=== PATIENT | female | born 1980 | race Caucasian/White ===

== ENCOUNTER → 2017-01-04 | Outpatient (CLI) | payer OTHER ==
--- NOTE | 2017-01-04 14:15 | XR ---
EXAMINATION TYPE: XR sacrum coccyx DATE OF EXAM ORDERED: 01/04/2017 1:56 PM HISTORY: M53.3 Sacrococcygeal Disorders. COMPARISON: None. FINDINGS: Clips project over the right hemipelvis. The sacrum and coccyx are normal. There is no evidence of fracture or bony destructive lesion. The SI joints have a normal appearance. IMPRESSION: NORMAL SACRUM AND COCCYX.
== END | disposition home or self-care (01) ==
LOC: RADXRMAIN 13:39
PROVIDERS: ATTEND Pediatrics
DX: M53.3 Sacrococcygeal disorders, not elsewhere classified (principal)
CPT/HCPCS: 72220

== ENCOUNTER 2017-02-08 22:03 | Emergency (ER) | payer OTHER ==
[2017-02-08] MEDS ORDERED: SODIUM CHLORIDE 0.9% 1,000 ML IV STA ×2 (22:15)
[2017-02-08] MEDS ORDERED: ACETAMINOPHEN TAB 500 MG TAB PO STA (22:16)
--- NOTE | 2017-02-08 22:30 | XR ---
EXAM: XR Chest, 2 Views CLINICAL HISTORY: Reason: Chest Pain TECHNIQUE: Frontal and lateral views of the chest. COMPARISON: No relevant prior studies available. FINDINGS: Lungs: Unremarkable. No consolidation. Pleural space: Unremarkable. No pneumothorax. Heart: Unremarkable. No cardiomegaly. Mediastinum: Unremarkable. Bones/joints: No acute osseous abnormality is seen. Upper abdomen: Partially included on the lateral view only, are surgical clips within the upper to mid abdomen. IMPRESSION: No acute process seen within the chest.
[2017-02-08] MEDS ORDERED: KETOROLAC 30 MG/ML 1 ML VIAL IVP STA (22:46)
[2017-02-08 23:01] LABS: Basophils % (A) 0 %; CH 33.3; CHCM 35.3; Eosinophils % (A) 0 %; HCT 39.5 % (34.0-46.0); HDW 2.38; HGB 13.5 gm/dL (11.4-16.0); Luc # (Auto) 0.19; Luc % (Auto) 1; Lymphocytes % (A) 7 %; MCH 32.3 pg (25.0-35.0); MCHC 34.2 g/dL (31.0-37.0); MCV 94.7 fL (80.0-100.0); Mean Platelet Volume 6.6; Monocytes # (A) 0.6 k/uL (0-1.0); Monocytes % (A) 4 %; Neutrophils # (A) 12.2 k/uL (1.3-7.7); Neutrophils % (A) 87 %; RBC 4.17 m/uL (3.80-5.40); RDW 13.3 % (11.5-15.5); WBC 14.1 k/uL (3.8-10.6); WBC (Perox) 14.47
[2017-02-08 23:10] LABS: INR 0.9 (<1.1); Partial Thromboplastin Time 22.8 sec (22.0-30.0); Prothrombin Time 9.5 sec (9.0-12.0)
[2017-02-08 23:34] LABS: ALT 31 U/L (9-52); AST 19 U/L (14-36); Alkaline Phosphatase 71 U/L (38-126); Anion Gap 11 mmol/L; Blood Urea Nitrogen 6 mg/dL (7-17); Calcium 9.2 mg/dL (8.4-10.2); Carbon Dioxide 22 mmol/L (22-30); Chloride 102 mmol/L (98-107); Glucose 122 mg/dL (74-99); Non-African American GFR(MDRD) >60 (>60 ml/min/1.73 sqM); Potassium 3.8 mmol/L (3.5-5.1); Sodium 135 mmol/L (137-145); Total Bilirubin 0.3 mg/dL (0.2-1.3); Total Protein 6.3 g/dL (6.3-8.2)
[2017-02-08 23:44] LABS: Appearance,Urine Clear (Clear); Bilirubin,Urine Negative (Negative); Glucose,Urine (UA) Negative (Negative); Ketones,Urine Negative (Negative); Leukocyte Esterase,Urine Negative (Negative); Nitrite,Urine Negative (Negative); Protein,Urine Negative (Negative); Specific Gravity,Urine 1.004 (1.001-1.035); UA Billing (MACRO vs. MICRO) CHEM; Urobilinogen,Urine <2.0 mg/dL (<2.0)
[2017-02-08] MEDS ORDERED: AMOXICILLIN 500MG STARTER PACK 3 CAP BTL PO STA (23:44)
--- NOTE | 2017-02-08 23:55 | ED ---
Headache HPI - General Chief Complaint: Headache Stated Complaint: migraine and fever Time Seen by Provider: 02/08/17 22:15 Source: RN notes reviewed, old records reviewed Mode of arrival: ambulatory Limitations: no limitations - History of Present Illness Initial Comments: This is a 36-year-old female with chief complaint of headache and sore throat for the past few hours. Patient reports that she was feeling fine earlier today. She reports that she started developing any fever later this evening. She did take some Motrin earlier today. She states that now she currently has a severe headache. She denies any neurological deficits. She reports that her headaches attack 10. She states that she is not taking any Tylenol. Denies any nausea or vomiting abdominal pain today. Denies any chest pain shortness of breath or coughing. Patient states that she's opted on vaccinations. She has a medical history including viral meningitis. - Related Data Home Medications Medication Instructions Recorded Confirmed ALPRAZolam [Xanax] 0.5 mg PO DAILY PRN 02/08/17 02/08/17 Ibuprofen [Motrin] 400 mg PO Q6HR PRN 02/08/17 02/08/17 Venlafaxine HCl [Effexor] 100 mg PO BID 02/08/17 02/08/17 Previous Rx's Medication Instructions Recorded Amoxicillin 500 mg PO Q12HR #10 cap 02/09/17 Allergies Allergy/AdvReac Type Severity Reaction Status Date / Time No Known Allergies Allergy Verified 02/08/17 22:47 Review of Systems ROS Statement: Those systems with pertinent positive or pertinent negative responses have been documented in the HPI. ROS Other: All systems not noted in ROS Statement are negative. Past Medical History Additional Past Medical History / Comment(s): meningitis,rheumatic fever History of Any Multi-Drug Resistant Organisms: None Reported Past Surgical History: Cholecystectomy, Hysterectomy Additional Past Surgical History / Comment(s): blood patch Past Psychological History: Anxiety, Depression Smoking Status: Current every day smoker Past Alcohol Use History: Occasional Past Drug Use History: None Reported General Exam - General Exam Comments Initial Comments: Well-appearing 36-year-old female. Patient does appear to be tired. Limitations: no limitations General appearance: alert, in no apparent distress Head exam: Present: atraumatic, normocephalic, normal inspection Eye exam: Present: normal appearance, PERRL, EOMI. Absent: scleral icterus, conjunctival injection, periorbital swelling ENT exam: Present: normal exam, mucous membranes moist. Absent: normal oropharynx (Limits oropharynx with white exudates.) Neck exam: Present: normal inspection. Absent: tenderness, meningismus, lymphadenopathy Respiratory exam: Present: normal lung sounds bilaterally. Absent: respiratory distress, wheezes, rales, rhonchi, stridor Cardiovascular Exam: Present: regular rate, normal rhythm, normal heart sounds. Absent: systolic murmur, diastolic murmur, rubs, gallop, clicks GI/Abdominal exam: Present: soft, normal bowel sounds. Absent: distended, tenderness, guarding, rebound, rigid Extremities exam: Present: normal inspection, full ROM, normal capillary refill. Absent: tenderness, pedal edema, joint swelling, calf tenderness Back exam: Present: normal inspection Neurological exam: Present: alert, oriented X3, CN II-XII intact Psychiatric exam: Present: normal affect, normal mood Skin exam: Present: warm, dry, intact, normal color. Absent: rash Course Vital Signs 02/08/17 02/09/17 22:10 00:15 Temperature 102.7 F H 101.5 F H Pulse Rate 138 H 108 H Respiratory 20 16 Rate Blood Pressure 133/76 120/56 O2 Sat by Pulse 96 96 Oximetry Medical Decision Making - Medical Decision Making This is a 36-year-old female with chief complaint of headache and sore throat for the past few hours. Patient reports that she was feeling fine earlier today. She reports that she started developing any fever later this evening. She did take some Motrin earlier today. She states that now she currently has a severe headache. She denies any neurological deficits. She reports that her headaches attack 10. Patient given IV fluids, labs obtained. Leukocytosis of 14.4. Patient has positive rapid strep. Patient some improvement of headache with IV fluids, and toradol and tylenol. Sehe is feeling much better at this time. PAtient will be discharged with amoxicillin. Patient agrees to treatment plan and will comply. Return parameters dischssed. - Lab Data Result diagrams: 02/08/17 22:39 02/08/17 22:39 Lab Results 02/08/17 02/08/17 02/08/17 Range/Units 20:11 22:39 22:39 WBC 14.1 H (3.8-10.6) k/uL RBC 4.17 (3.80-5.40) m/uL Hgb 13.5 (11.4-16.0) gm/dL Hct 39.5 (34.0-46.0) % MCV 94.7 (80.0-100.0) fL MCH 32.3 (25.0-35.0) pg MCHC 34.2 (31.0-37.0) g/dL RDW 13.3 (11.5-15.5) % Plt Count 295 (150-450) k/uL Neutrophils % 87 % Lymphocytes % 7 % Monocytes % 4 % Eosinophils % 0 % Basophils % 0 % Neutrophils # 12.2 H (1.3-7.7) k/uL Lymphocytes # 1.0 (1.0-4.8) k/uL Monocytes # 0.6 (0-1.0) k/uL Eosinophils # 0.0 (0-0.7) k/uL Basophils # 0.0 (0-0.2) k/uL PT (9.0-12.0) sec INR (<1.1) APTT (22.0-30.0) sec Sodium (137-145) mmol/L Potassium (3.5-5.1) mmol/L Chloride (98-107) mmol/L Carbon Dioxide (22-30) mmol/L Anion Gap mmol/L BUN (7-17) mg/dL Creatinine (0.52-1.04) mg/dL Est GFR (MDRD) Af Amer (>60 ml/min/1.73 sqM) Est GFR (MDRD) Non-Af (>60 ml/min/1.73 sqM) Glucose (74-99) mg/dL Plasma Lactic Acid Baron (0.7-2.0) mmol/L Calcium (8.4-10.2) mg/dL Total Bilirubin (0.2-1.3) mg/dL AST (14-36) U/L ALT (9-52) U/L Alkaline Phosphatase (38-126) U/L Total Creatine Kinase 117 (30-135) U/L CK-MB (CK-2) 0.7 (0.0-2.4) ng/mL CK-MB (CK-2) Rel Index 0.6 Total Protein (6.3-8.2) g/dL Albumin (3.5-5.0) g/dL Urine Color Light Yellow Urine Appearance Clear (Clear) Urine pH 7.0 (5.0-8.0) Ur Specific [place] 1.004 (1.001-1.035) Urine Protein Negative (Negative) Urine Glucose (UA) Negative (Negative) Urine Ketones Negative (Negative) Urine Blood Negative (Negative) Urine Nitrite Negative (Negative) Urine Bilirubin Negative (Negative) Urine Urobilinogen <2.0 (<2.0) mg/dL Ur Leukocyte Esterase Negative (Negative) Influenza Type A RNA (Not Detectd) Influenza Type B (PCR) (Not Detectd) Group A Strep Rapid (Negative) 02/08/17 02/08/17 02/08/17 Range/Units 22:39 22:39 22:39 WBC (3.8-10.6) k/uL RBC (3.80-5.40) m/uL Hgb (11.4-16.0) gm/dL Hct (34.0-46.0) % MCV (80.0-100.0) fL MCH (25.0-35.0) pg MCHC (31.0-37.0) g/dL RDW (11.5-15.5) % Plt Count (150-450) k/uL Neutrophils % % Lymphocytes % % Monocytes % % Eosinophils % % Basophils % % Neutrophils # (1.3-7.7) k/uL Lymphocytes # (1.0-4.8) k/uL Monocytes # (0-1.0) k/uL Eosinophils # (0-0.7) k/uL Basophils # (0-0.2) k/uL PT 9.5 (9.0-12.0) sec INR 0.9 (<1.1) APTT 22.8 (22.0-30.0) sec Sodium 135 L (137-145) mmol/L Potassium 3.8 (3.5-5.1) mmol/L Chloride 102 (98-107) mmol/L Carbon Dioxide 22 (22-30) mmol/L Anion Gap 11 mmol/L BUN 6 L (7-17) mg/dL Creatinine 0.60 (0.52-1.04) mg/dL Est GFR (MDRD) Af Amer >60 (>60 ml/min/1.73 sqM) Est GFR (MDRD) Non-Af >60 (>60 ml/min/1.73 sqM) Glucose 122 H (74-99) mg/dL Plasma Lactic Acid [place] 2.0 (0.7-2.0) mmol/L Calcium 9.2 (8.4-10.2) mg/dL Total Bilirubin 0.3 (0.2-1.3) mg/dL AST 19 (14-36) U/L ALT 31 (9-52) U/L Alkaline Phosphatase 71 (38-126) U/L Total Creatine Kinase (30-135) U/L CK-MB (CK-2) (0.0-2.4) ng/mL CK-MB (CK-2) Rel Index Total Protein 6.3 (6.3-8.2) g/dL Albumin 3.9 (3.5-5.0) g/dL Urine Color Urine Appearance (Clear) Urine pH (5.0-8.0) Ur Specific [place] (1.001-1.035) Urine Protein (Negative) Urine Glucose (UA) (Negative) Urine Ketones (Negative) Urine Blood (Negative) Urine Nitrite (Negative) Urine Bilirubin (Negative) Urine Urobilinogen (<2.0) mg/dL Ur Leukocyte Esterase (Negative) Influenza Type A RNA (Not Detectd) Influenza Type B (PCR) (Not Detectd) Group A Strep Rapid (Negative) 02/08/17 02/08/17 Range/Units 22:39 23:11 WBC (3.8-10.6) k/uL RBC (3.80-5.40) m/uL Hgb (11.4-16.0) gm/dL Hct (34.0-46.0) % MCV (80.0-100.0) fL MCH (25.0-35.0) pg MCHC (31.0-37.0) g/dL RDW (11.5-15.5) % Plt Count (150-450) k/uL Neutrophils % % Lymphocytes % % Monocytes % % Eosinophils % % Basophils % % Neutrophils # (1.3-7.7) k/uL Lymphocytes # (1.0-4.8) k/uL Monocytes # (0-1.0) k/uL Eosinophils # (0-0.7) k/uL Basophils # (0-0.2) k/uL PT (9.0-12.0) sec INR (<1.1) APTT (22.0-30.0) sec Sodium (137-145) mmol/L Potassium (3.5-5.1) mmol/L Chloride (98-107) mmol/L Carbon Dioxide (22-30) mmol/L Anion Gap mmol/L BUN (7-17) mg/dL Creatinine (0.52-1.04) mg/dL Est GFR (MDRD) Af Amer (>60 ml/min/1.73 sqM) Est GFR (MDRD) Non-Af (>60 ml/min/1.73 sqM) Glucose (74-99) mg/dL Plasma Lactic Acid Baron (0.7-2.0) mmol/L Calcium (8.4-10.2) mg/dL Total Bilirubin (0.2-1.3) mg/dL AST (14-36) U/L ALT (9-52) U/L Alkaline Phosphatase (38-126) U/L Total Creatine Kinase (30-135) U/L CK-MB (CK-2) (0.0-2.4) ng/mL CK-MB (CK-2) Rel Index Total Protein (6.3-8.2) g/dL Albumin (3.5-5.0) g/dL Urine Color Urine Appearance (Clear) Urine pH (5.0-8.0) Ur Specific [place] (1.001-1.035) Urine Protein (Negative) Urine Glucose (UA) (Negative) Urine Ketones (Negative) Urine Blood (Negative) Urine Nitrite (Negative) Urine Bilirubin (Negative) Urine Urobilinogen (<2.0) mg/dL Ur Leukocyte Esterase (Negative) Influenza Type A RNA Not Detected (Not Detectd) Influenza Type B (PCR) Not Detected (Not Detectd) Group A Strep Rapid Positive A (Negative) Disposition Clinical Impression: Migraine, Strep pharyngitis Disposition: HOME SELF-CARE Condition: Good Instructions: Acute Headache (ED), Strep Throat (ED) Additional Instructions: Complete antibiotic prescription. Patient to follow up with primary care provider on Saturday. Continue to dose Motrin Tylenol for fever and pain. Rest, remain hydrated. Prescriptions: Amoxicillin 500 mg PO Q12HR #10 cap Referrals: Hi Rodriguez MD [Primary Care Provider] - 1-2 days Time of Disposition: 00:12
[2017-02-09 00:04] LABS: Creatine Kinase MB 0.7 ng/mL (0.0-2.4)
[2017-02-09 00:16] VITALS: BP 120/56; PULSE 108; RESP 16; TEMP 101.5
[2017-02-09] MEDS ORDERED: HYDROmorphone 1 MG/ML 1 ML SYRINGE IVP STA (00:21)
[2017-02-09] MEDS ORDERED: ONDANSETRON 4 MG/2 ML VIAL IVP STA (00:22)
[2017-02-09] MEDS ORDERED: ONDANSETRON 4 MG ODT STARTER PACK 2 TAB BTL PO STA (00:22)
== END 2017-02-09 00:32 | disposition home or self-care (01) ==
LOC: EC 22:03
DX: G43.909 Migraine, unspecified, not intractable, without status migrainosus (principal); J02.0 Streptococcal pharyngitis; F32.9 Major depressive disorder, single episode, unspecified; F41.9 Anxiety disorder, unspecified; F17.200 Nicotine dependence, unspecified, uncomplicated; Z79.899 Other long term (current) drug therapy
CPT/HCPCS: 36415; 80053; 82550; 82553; 83605; 85025; 85610; 85730; 81003; 87040; 87430; 87502; 71020; 99284; 96374; 96375 ×2; 96361 ×2; J2405; J1885; J1170; S0119